=== PATIENT | male | born 1980 | race Caucasian/White ===

== ENCOUNTER 2018-02-18 15:37 | Emergency (ER) | payer OTHER ==
[~2018-02-18] VITALS: Ht 193 cm; Wt 99.8 kg
[2018-02-18] MEDS ORDERED: IBU800 MG PO (15:51)
== END 2018-02-18 16:57 | disposition home or self-care (01) ==
LOC: ED 15:37
DX: S93.402A Sprain of unspecified ligament of left ankle, initial encounter (principal); F17.200 Nicotine dependence, unspecified, uncomplicated; W11.XXXA Fall on and from ladder, initial encounter
CPT/HCPCS: 73610; 99283